=== PATIENT | male | born 1960 | race Caucasian/White ===

== ENCOUNTER 2016-08-02 20:45 | Emergency (ER) | payer MEDICARE ==
[~2016-08-02] VITALS: Ht 188 cm; Wt 113.6 kg
[~2016-08-02 20:45] MED LIST: ASPI-556 PO; BACL10TA PO; DIPH25 PO; DULO30CA51 PO; GABA-531 PO; IBUP-2070 PO; METO-327 PO; TIZA4TAB4 PO
[2016-08-03] MEDS ORDERED: IBUPROFEN 600 MG TABLET PO ONE (00:30)
[2016-08-03 00:44] VITALS: BP 132/78
== END 2016-08-03 00:56 | disposition home or self-care (01) ==
LOC: EMS 20:46
DX: M19.90 Unspecified osteoarthritis, unspecified site (principal); M25.571 Pain in right ankle and joints of right foot; M25.551 Pain in right hip; I10 Essential (primary) hypertension; F17.210 Nicotine dependence, cigarettes, uncomplicated; Z86.73 Personal history of transient ischemic attack (TIA), and cerebral infarction without residual deficits
CPT/HCPCS: 29540; 73502; 99284

== ENCOUNTER 2016-08-08 12:29 | Inpatient (IN) | payer MEDICARE ==
[~2016-08-08] VITALS: Ht 180.3 cm; Wt 105.0 kg
[2016-08-08] MEDS ORDERED: HYDROCODONE/ACETAMINOPHEN 5-325 MG TABLET PO ONE (14:00)
[2016-08-08] MEDS ORDERED: LURA40 PO (14:37)
[2016-08-08] MEDS ORDERED: LEVE500T53 PO (14:37)
[2016-08-08] MEDS ORDERED: IPRA3AMP4 IH (14:37)
[2016-08-08] MEDS ORDERED: PANT40TA25 PO (14:37)
[2016-08-08] MEDS ORDERED: TIOT185 IH (14:37)
[2016-08-08] MEDS ORDERED: CILO100T PO (14:37)
[2016-08-08] MEDS ORDERED: BACL10TA PO (14:37)
[2016-08-08] MEDS ORDERED: APIX5TAB PO (14:37)
[2016-08-08] MEDS ORDERED: ALBU8.5H IH (14:37)
[2016-08-08 19:27] LABS: BASOPHILS % (AUTO) 0.9 % (0.0-2.0); EOSINOPHILS % (AUTO) 1.9 % (1.0-6.0); HEMATOCRIT 46.5 % (41-53); HEMOGLOBIN 15.1 g/dL (13.5-17.5); LYMPHOCYTES # (AUTO) 2.5 K/uL (1.0-4.8); LYMPHOCYTES % (AUTO) 22.9 % (22.0-44.0); MEAN CORPUSCULAR HEMOGLOBIN 29.7 pg (26.0-34.0); MEAN CORPUSCULAR HGB CONC 32.5 G/dL (31.0-37.0); MEAN CORPUSCULAR VOLUME 91 fL (80-100); MONOCYTES # (AUTO) 0.6 K/uL (0.1-1.0); MONOCYTES % (AUTO) 5.6 % (2.0-9.0); NEUTROPHILS # (AUTO) 7.4 K/uL (1.8-7.7); NEUTROPHILS % (AUTO) 68.7 % (40.0-70.0); PLATELET COUNT (AUTO) 250 K/uL (150-450); RED CELL DISTRIBUTION WIDTH 14.9 % (11.5-14.5); WHITE BLOOD COUNT (AUTO) 10.8 K/uL (4.5-11.0)
[2016-08-08 19:36] LABS: ANION GAP 8 mmol/L (8-16); CARBON DIOXIDE 28 mmol/L (22-29); CHLORIDE 104 mmol/L (98-107); CREATININE 0.74 mg/dL (0.60-1.30); GLOMERULAR FILTR. RATE CALC > 60 mL/min (>60); POTASSIUM 4.2 mmol/L (3.5-5.1); SODIUM SERUM 140 mmol/L (136-145); UREA NITROGEN, BLOOD 12 mg/dL (7-18)
[2016-08-08 19:43] LABS: ALANINE AMINOTRANSFERASE 15 U/L (12-78); ALBUMIN 3.2 g/dL (3.4-5.0); ASPARTATE AMINOTRANSFERASE 25 U/L (15-37); BILIRUBIN,TOTAL 0.8 mg/dL (0.1-1.0); TOTAL PROTEIN, SERUM 7.8 g/dL (6.4-8.2)
[2016-08-09] VITALS (7 sets, daily range): BP systolic 122–153; BP diastolic 74–95
[2016-08-09] MEDS ORDERED: HYDROCODONE/ACETAMINOPHEN 5-325 MG TABLET PO PRN ×2 (04:00→05:00)
[2016-08-09] MEDS ORDERED: MAGNESIUM HYDROXIDE SUSPENSION 30 ML UDCUP PO PRN (05:00)
[2016-08-09] MEDS ORDERED: ALBUTEROL SULFATE 2.5 MG/0.5 ML NEB SOLUTION NEB PRN (05:00)
[2016-08-09] MEDS ORDERED: BISACODYL 10 MG RECTAL RECTAL SUPPOSITORY PR PRN (05:00)
[2016-08-09] MEDS ORDERED: 0.9% SODIUM CHLORIDE 10 ML SYRINGE IVP PRN (05:00)
[2016-08-09] MEDS ORDERED: ONDANSETRON HCL 4 MG/2 ML VIAL IVP PRN (05:00)
[2016-08-09] MEDS ORDERED: ZOLPIDEM TARTRATE 5 MG TABLET PO PRN (05:00)
[2016-08-09] MEDS ORDERED: ACETAMINOPHEN 325 MG TABLET PO PRN (05:00)
[2016-08-09] MEDS ORDERED: MORPHINE SULFATE 2 MG/ML SYRINGE IVP PRN (05:00)
[2016-08-09] MEDS: CILOSTAZOL 100 MG TABLET PO SCH ×2 (06:12→17:19)
[2016-08-09 08:08] LABS: BASOPHILS % (AUTO) 0.5 % (0.0-2.0); EOSINOPHILS % (AUTO) 2.4 % (1.0-6.0); HEMOGLOBIN 15.1 g/dL (13.5-17.5); LYMPHOCYTES # (AUTO) 1.8 K/uL (1.0-4.8); LYMPHOCYTES % (AUTO) 19.5 % (22.0-44.0); MEAN CORPUSCULAR HEMOGLOBIN 29.8 pg (26.0-34.0); MEAN CORPUSCULAR HGB CONC 32.8 G/dL (31.0-37.0); MEAN CORPUSCULAR VOLUME 91 fL (80-100); MONOCYTES # (AUTO) 0.5 K/uL (0.1-1.0); MONOCYTES % (AUTO) 5.7 % (2.0-9.0); NEUTROPHILS # (AUTO) 6.5 K/uL (1.8-7.7); NEUTROPHILS % (AUTO) 71.9 % (40.0-70.0); PLATELET COUNT (AUTO) 228 K/uL (150-450); RED BLOOD CELL COUNT(AUTO) 5.07 MIL/uL (4.50-5.90); RED CELL DISTRIBUTION WIDTH 15.1 % (11.5-14.5)
[2016-08-09 08:24] LABS: ALANINE AMINOTRANSFERASE 16 U/L (12-78); ALBUMIN 3.1 g/dL (3.4-5.0); ANION GAP 8 mmol/L (8-16); ASPARTATE AMINOTRANSFERASE 21 U/L (15-37); BILIRUBIN,TOTAL 0.9 mg/dL (0.1-1.0); CALCIUM, TOTAL 8.9 mg/dL (8.8-10.5); CARBON DIOXIDE 29 mmol/L (22-29); CHLORIDE 103 mmol/L (98-107); CREATININE 0.83 mg/dL (0.60-1.30); GLOMERULAR FILTR. RATE CALC > 60 mL/min (>60); POTASSIUM 3.9 mmol/L (3.5-5.1); SODIUM SERUM 140 mmol/L (136-145); TOTAL PROTEIN, SERUM 7.7 g/dL (6.4-8.2); UREA NITROGEN, BLOOD 13 mg/dL (7-18)
[2016-08-09] MEDS: DOCUSATE SODIUM 100 MG CAPSULE PO SCH ×2 (09:00→20:27)
[2016-08-09] MEDS: APIXABAN 5 MG TABLET PO SCH ×2 (09:00→20:18)
[2016-08-09] MEDS: PANTOPRAZOLE SODIUM 40 MG DR TABLET PO SCH (09:00)
[2016-08-09] MEDS: ATORVASTATIN CALCIUM 20 MG TABLET PO SCH (09:00)
[2016-08-09] MEDS: BACLOFEN 10 MG TABLET PO SCH ×3 (09:00→20:17)
[2016-08-09] MEDS: ASPIRIN 81 MG EC TABLET PO SCH (09:00)
[2016-08-09] MEDS: LevETIRAcetam 500 MG TABLET PO SCH ×2 (09:00→20:17)
[2016-08-09] MEDS: METOPROLOL SUCCINATE 100 MG ER TABLET PO SCH ×2 (09:00→20:18)
[2016-08-09] MEDS: GABAPENTIN 300 MG CAPSULE PO SCH ×2 (09:00→20:17)
[2016-08-09] MEDS: TIOTROPIUM BROMIDE 18 MCG/INH HANDIHALER [5] IH SCH (09:37)
[2016-08-09] MEDS: HEPARIN SODIUM,PORCINE 5,000 UNITS/ML VIAL SQ SCH ×3 (09:44→23:23)
[2016-08-09] MEDS ORDERED: SODIUM CHLORIDE 0.9% 1,000 ML IV ONE (10:12)
[2016-08-10 04:08] VITALS: BP 126/87
[2016-08-10] MEDS: CILOSTAZOL 100 MG TABLET PO SCH ×2 (05:46→16:08)
[2016-08-10 07:22] VITALS: BP 129/70
[2016-08-10] MEDS: LevETIRAcetam 500 MG TABLET PO SCH ×2 (08:43→20:47)
[2016-08-10] MEDS: ATORVASTATIN CALCIUM 20 MG TABLET PO SCH (08:43)
[2016-08-10] MEDS: GABAPENTIN 300 MG CAPSULE PO SCH ×2 (08:43→20:47)
[2016-08-10] MEDS: PANTOPRAZOLE SODIUM 40 MG DR TABLET PO SCH (08:43)
[2016-08-10] MEDS: BACLOFEN 10 MG TABLET PO SCH ×3 (08:43→20:47)
[2016-08-10] MEDS: HEPARIN SODIUM,PORCINE 5,000 UNITS/ML VIAL SQ SCH (08:43)
[2016-08-10] MEDS: APIXABAN 5 MG TABLET PO SCH ×2 (08:43→20:47)
[2016-08-10] MEDS: DOCUSATE SODIUM 100 MG CAPSULE PO SCH ×2 (08:43→20:47)
[2016-08-10] MEDS: METOPROLOL SUCCINATE 100 MG ER TABLET PO SCH ×2 (08:44→20:46)
[2016-08-10] MEDS: ASPIRIN 81 MG EC TABLET PO SCH (08:44)
[2016-08-10] MEDS: TIOTROPIUM BROMIDE 18 MCG/INH HANDIHALER [5] IH SCH (08:45)
[2016-08-10 09:47] LABS: BASOPHILS % (AUTO) 0.3 % (0.0-2.0); EOSINOPHILS % (AUTO) 2.6 % (1.0-6.0); HEMOGLOBIN 15.3 g/dL (13.5-17.5); LYMPHOCYTES # (AUTO) 1.9 K/uL (1.0-4.8); LYMPHOCYTES % (AUTO) 18.1 % (22.0-44.0); MEAN CORPUSCULAR HEMOGLOBIN 29.6 pg (26.0-34.0); MEAN CORPUSCULAR HGB CONC 32.6 G/dL (31.0-37.0); MEAN CORPUSCULAR VOLUME 91 fL (80-100); MONOCYTES # (AUTO) 0.7 K/uL (0.1-1.0); MONOCYTES % (AUTO) 6.2 % (2.0-9.0); NEUTROPHILS # (AUTO) 7.7 K/uL (1.8-7.7); NEUTROPHILS % (AUTO) 72.8 % (40.0-70.0); PLATELET COUNT (AUTO) 239 K/uL (150-450); RED BLOOD CELL COUNT(AUTO) 5.17 MIL/uL (4.50-5.90); RED CELL DISTRIBUTION WIDTH 15.6 % (11.5-14.5); WHITE BLOOD COUNT (AUTO) 10.6 K/uL (4.5-11.0)
[2016-08-10 10:04] LABS: ALANINE AMINOTRANSFERASE 17 U/L (12-78); ALBUMIN 3.2 g/dL (3.4-5.0); ANION GAP 8 mmol/L (8-16); ASPARTATE AMINOTRANSFERASE 18 U/L (15-37); BILIRUBIN,TOTAL 0.9 mg/dL (0.1-1.0); CALCIUM, TOTAL 9.1 mg/dL (8.8-10.5); CARBON DIOXIDE 28 mmol/L (22-29); CHLORIDE 103 mmol/L (98-107); CREATININE 0.82 mg/dL (0.60-1.30); GLOMERULAR FILTR. RATE CALC > 60 mL/min (>60); POTASSIUM 3.8 mmol/L (3.5-5.1); SODIUM SERUM 139 mmol/L (136-145); UREA NITROGEN, BLOOD 9 mg/dL (7-18)
[2016-08-10 12:30] VITALS: BP 135/89
[2016-08-10 15:30] VITALS: BP 124/75
[2016-08-10 20:28] VITALS: BP 116/79
[2016-08-10 22:41] LABS: APPEARANCE,URINE CLEAR (CLEAR); GLUCOSE, URINE (UA) NEGATIVE (NEGATIVE); KETONES,URINE NEGATIVE (NEGATIVE); LEUKOCYTE ESTERASE ,URINE TRACE (NEGATIVE); OCCULT BLOOD,URINE NEGATIVE (NEGATIVE); PH,URINE 6.5 (5.0-8.0); PROTEIN,URINE NEGATIVE (NEGATIVE)
[2016-08-10 22:42] LABS: ADD UA MICROSCOPIC YES
[2016-08-10 22:43] LABS: FINE GRANULAR CASTS,URINE 0-2 /LPF (None Seen); RBC,URINE 0-2 /HPF (0-2); SQUAMOUS EPITHELIAL CELL,UR Few /LPF (None Seen)
[2016-08-11 01:16] VITALS: BP 125/87
[2016-08-11] MEDS: CILOSTAZOL 100 MG TABLET PO SCH ×2 (05:49→17:01)
[2016-08-11 06:08] VITALS: BP 116/73
[2016-08-11 07:54] VITALS: BP 129/88
[2016-08-11] MEDS: METOPROLOL SUCCINATE 100 MG ER TABLET PO SCH (08:40)
[2016-08-11] MEDS: APIXABAN 5 MG TABLET PO SCH (08:40)
[2016-08-11] MEDS: PANTOPRAZOLE SODIUM 40 MG DR TABLET PO SCH (08:40)
[2016-08-11] MEDS: GABAPENTIN 300 MG CAPSULE PO SCH (08:41)
[2016-08-11] MEDS: DOCUSATE SODIUM 100 MG CAPSULE PO SCH (08:41)
[2016-08-11] MEDS: BACLOFEN 10 MG TABLET PO SCH ×2 (08:41→17:02)
[2016-08-11] MEDS: ATORVASTATIN CALCIUM 20 MG TABLET PO SCH (08:41)
[2016-08-11] MEDS: LevETIRAcetam 500 MG TABLET PO SCH (08:41)
[2016-08-11] MEDS: TIOTROPIUM BROMIDE 18 MCG/INH HANDIHALER [5] IH SCH (08:42)
[2016-08-11] MEDS: ASPIRIN 81 MG EC TABLET PO SCH (08:52)
[2016-08-11 09:24] LABS: BASOPHILS # (AUTO) 0.04 K/uL (0.00-0.20); BASOPHILS % (AUTO) 0.4 % (0.0-2.0); EOSINOPHILS # (AUTO) 0.36 K/uL (0.00-0.70); EOSINOPHILS % (AUTO) 3.93 % (1.0-6.0); HEMATOCRIT 48.3 % (41-53); HEMOGLOBIN 15.9 g/dL (13.5-17.5); LYMPHOCYTES # (AUTO) 2.1 K/uL (1.0-4.8); LYMPHOCYTES % (AUTO) 22.9 % (22.0-44.0); MEAN CORPUSCULAR HEMOGLOBIN 30.1 pg (26.0-34.0); MEAN CORPUSCULAR HGB CONC 32.9 G/dL (31.0-37.0); MEAN CORPUSCULAR VOLUME 91 fL (80-100); MONOCYTES # (AUTO) 0.7 K/uL (0.1-1.0); MONOCYTES % (AUTO) 7.9 % (2.0-9.0); NEUTROPHILS % (AUTO) 64.9 % (40.0-70.0); PLATELET COUNT (AUTO) 221 K/uL (150-450); RED BLOOD CELL COUNT(AUTO) 5.29 MIL/uL (4.50-5.90); RED CELL DISTRIBUTION WIDTH 15.2 % (11.5-14.5); WHITE BLOOD COUNT (AUTO) 9.3 K/uL (4.5-11.0)
[2016-08-11 09:42] LABS: ALANINE AMINOTRANSFERASE 16 U/L (12-78); ALBUMIN 3.1 g/dL (3.4-5.0); ANION GAP 7 mmol/L (8-16); ASPARTATE AMINOTRANSFERASE 22 U/L (15-37); BILIRUBIN,TOTAL 0.7 mg/dL (0.1-1.0); CALCIUM, TOTAL 9.3 mg/dL (8.8-10.5); CARBON DIOXIDE 29 mmol/L (22-29); CHLORIDE 103 mmol/L (98-107); CREATININE 0.78 mg/dL (0.60-1.30); GLOMERULAR FILTR. RATE CALC > 60 mL/min (>60); POTASSIUM 4.3 mmol/L (3.5-5.1); SODIUM SERUM 139 mmol/L (136-145); TOTAL PROTEIN, SERUM 8.1 g/dL (6.4-8.2); UREA NITROGEN, BLOOD 10 mg/dL (7-18)
[2016-08-11 12:13] VITALS: BP 134/82
== END 2016-08-11 18:45 | DRG 65 ==
LOC: EMS 12:32 → INTOOBSV 23:24 → OBSVTOIN 23:24 → 6N 23:24
PROVIDERS: ADMIT Internal Medicine; ATTEND Internal Medicine
DX: I63.9 Cerebral infarction, unspecified (principal); I69.351 Hemiplegia and hemiparesis following cerebral infarction affecting right dominant side; R53.1 Weakness; R47.01 Aphasia; G89.29 Other chronic pain; S43.401A Unspecified sprain of right shoulder joint, initial encounter; R29.6 Repeated falls; I48.0 Paroxysmal atrial fibrillation; R13.10 Dysphagia, unspecified; G40.909 Epilepsy, unspecified, not intractable, without status epilepticus; I48.2 Chronic atrial fibrillation; I11.9 Hypertensive heart disease without heart failure; Z96.641 Presence of right artificial hip joint; F17.210 Nicotine dependence, cigarettes, uncomplicated; F32.9 Major depressive disorder, single episode, unspecified; W05.0XXA Fall from non-moving wheelchair, initial encounter; J44.9 Chronic obstructive pulmonary disease, unspecified; M54.89 Other dorsalgia; Z86.718 Personal history of other venous thrombosis and embolism; I69.320 Aphasia following cerebral infarction; Z79.82 Long term (current) use of aspirin; Z91.81 History of falling; Y93.89 Activity, other specified; Z86.73 Personal history of transient ischemic attack (TIA), and cerebral infarction without residual deficits; Y99.8 Other external cause status; Y92.128 Other place in nursing home as the place of occurrence of the external cause
CPT/HCPCS: 70551; 92526; 92610; 93880; 97163; 99285; 99406; J1644; J2270; J7030